=== PATIENT | female | born 1995 | race Caucasian/White ===

== ENCOUNTER 2023-11-03 16:50 | Emergency (ER) | payer OTHER, SELFPAY ==
[2023-11-03 17:01] VITALS: BP 122/82
[2023-11-03 17:21] LABS: % Basophils 0.2 % (0-2); % Eosinophils 0.8 % (0-6); % Immature Granulocytes 0.9 % (0-0.5); % Lymphocytes 15.6 % (20.5-51.1); % Monocytes 8.7 % (1.7-9.3); % Neutrophils 73.8 % (42.2-75.2); Absolute Eosinophils 0.1 10^3/uL (0-0.7); Absolute Immature Granulocytes 0.1 10^3/uL (0-0.05); Absolute Lymphocytes 2.2 10^3/uL (1.2-3.4); Absolute Monocytes 1.2 10^3/uL (0.1-0.6); Absolute Neutrophils 10.2 10^3/uL (1.4-6.5); Hemoglobin 11.9 g/dL (12.0-16.0); Mean Corpuscular Hgb 31.4 pg (27.0-31.0); Mean Corpuscular Volume 92.3 fL (81.0-99.0); Mean Platelet Volume 11.5 fL (7.4-10.4); Nucleated Red Blood Cells % 0 %; Platelet Count 157 10^3/uL (130-400); Red Blood Cell Count 3.79 10^6/uL (4.20-5.40); White Blood Cell Count 13.8 10^3/uL (4.8-10.8)
[2023-11-03 17:34] LABS: ALT (SGPT) 29 U/L (0-35); AST (SGOT) 30 U/L (14-36); Albumin 3.8 g/dl (3.5-5.0); Alkaline Phosphatase 104 U/L (38-126); Blood Urea Nitrogen 7 mg/dl (7-17); Carbon Dioxide 22 mmol/L (22-30); Chloride 101 mmol/L (98-107); Glucose 80 mg/dl (70-99); INR 0.99; PT 13.1 Sec (11.4-14.6); Potassium 3.9 mmol/L (3.5-5.1); Sodium 131 mmol/L (135-145); Total Bilirubin 0.5 mg/dl (0.2-1.3); Total Protein 6.5 g/dl (6.3-8.2); eGFR > 60.00
[2023-11-03 17:45] LABS: Troponin I < 0.012 ng/ml
--- NOTE | 2023-11-03 18:22 | ED.GENMED ---
History of Present Illness
General
Chief Complaint: Cardiac Symptoms
Source: patient
Exam Limitations: none
Time Seen by Provider: 11/03/23 17:58
Travel History
Have you had any contact with someone who has COVID-19?: No
Do you have any symptoms of coronavirus? Fever > 100 degrees, chills, cough, shortness of breath, sore throat, loss of taste or smell, muscle aches, or headache?: No
History of Present Illness
History of Present Illness:
27 year old female 35 weeks along presents for evaluation for chest pressure and SOB. The symptoms are intermittent and now currently resolved. Initially she was seen by her OB today but she mentioned the symptoms to. [facility]
doctor family doctor did EKG which looked abnormal and she was sent here. Currently she denies chest pain. She denies shortness of breath. She denies leg pain. She notes edema in her legs as a result of her but this is not new. No
other complaints at this time
Phy Exam
Physical Exam
Physical Exam:
General: Well-appearing female no acute respiratory
HEENT: Normocephalic atraumatic
Heart: Regular rate and rhythm no murmurs
Lungs: Clear to auscultation bilaterally no wheezing
Extremities: Mild pitting edema bilateral lower extremities no calf tenderness
Abdomen is gravid nontender skin is warm no rash
Course
Orders/Labs/Results
Orders:
Orders
11/03/23 16:53
Electrocardiogram (*1) Urgent
Reason for Study: Chest Pain
EKG- Treatment ONCE
11/03/23 17:02
US Periph Venous LOWER Ext RT Urgent
Comment:
Reason For Exam: swelling
11/03/23 17:07
Complete Blood Count/With Diff Urgent
Comprehensive Metabolic Panel Urgent
Prothrombin Time Urgent
Troponin I Urgent
Abnormal Lab Results
11/03/23
17:07
WBC 13.8 H 10^3/uL
(4.8-10.8)
RBC 3.79 L 10^6/uL
(4.20-5.40)
Hgb 11.9 L g/dL
(12.0-16.0)
Hct 35.0 L %
(37.0-47.0)
MCH 31.4 H pg
(27.0-31.0)
MPV 11.5 H fL
(7.4-10.4)
Abs Immat Gran (auto) 0.1 H 10^3/uL
(0-0.05)
Absolute Neuts (auto) 10.2 H 10^3/uL
(1.4-6.5)
Absolute Monos (auto) 1.2 H 10^3/uL
(0.1-0.6)
Immature Gran % 0.9 H %
(0-0.5)
Lymphocytes % 15.6 L %
(20.5-51.1)
Sodium 131 L mmol/L
(135-145)
Creatinine 0.4 L mg/dL
(0.6-1.0)
11/03/23 17:07
11/03/23 17:07
Vital Signs
Initial and Last Documented VS:
Initial Vital Signs
Temp Pulse Resp BP Pulse Ox
98.0 F 110 18 122/82 99
11/03/23 17:01 11/03/23 17:01 11/03/23 17:01 11/03/23 17:01 11/03/23 17:01
Last Documented Vital Signs
Temp Pulse Resp BP Pulse Ox
98.0 F 89 18 122/82 99
11/03/23 17:01 11/03/23 18:13 11/03/23 17:01 11/03/23 17:01 11/03/23 17:01
MDM/Problems Addressed
Differential Diagnosis Includes:
Patient sent here for evaluation of chest pressure and shortness of breath in the setting of late third trimester . Currently symptoms are resolved. Patient is at risk for thrombotic events. She is not hypoxic she is not tachycardic.
Ultrasound of both legs were performed today through triage which are negative for DVT. Labs reviewed without significant finding.
Given resolution of symptoms and normal vital signs do not suspect PE at this time. ACS unlikely with negative troponin and resolution of symptoms.
*Critical Care Note
Total Time (30-74mins, 75-104mins- exclusive of procedures): Not Applicable
Update Note
Update Note:
Patient remained asymptomatic here EKGs were within normal limits. Patient was not tachycardic on arrival. unlikely PE. Stable for discharge
ED Attending Note
-
Portions of this chart may have been created with voice recognition software.� Occasional wrong word or��sound alike� substitutions may have occurred due to the inherent limitations of voice recognition software.
Discharge Plan
Departure
Patient Disposition: Home (Routine Discharge)
Date of Disposition: 11/03/23
Time of Disposition: 19:29
Patient with high blood pressure during this ER visit?: No
Discharge Problem:
Chest pain
Instructions: Chest Pain (DC)
Referrals:
Clair Solis DO [Family Provider] -
Activity Restrictions/Additional Instructions:
Please return here for worsening symptoms otherwise follow-up with your treating physicians
Interventions
Interventions:
*Risk Screen - Suicide Last Done: 11/03/23 17:01
*General Assessment Last Done: 11/03/23 17:01
*Neglect/Abuse Screening Last Done: 11/03/23 17:01
ED- Fall Risk Assessment Last Done: 11/03/23 19:21
*ED COVID-19 Vaccine History Last Done: 11/03/23 17:01
ED- Pulmonary Assessment Last Done: 11/03/23 19:21
ED- Cardiac Assessment Last Done: 11/03/23 19:21
Discharge Date and Time
Print Language: ARABIC
== END 2023-11-03 19:32 | disposition home or self-care (01) ==
LOC: EMR 16:50
PROVIDERS: Emergency Medicine; EMERGENCY PHYSICIAN Emergency Medicine; FAMILY PHYSICIAN Family Medicine
DX: O26.893 Other specified pregnancy related conditions, third trimester (principal); R07.89 Other chest pain; R06.02 Shortness of breath; Z3A.35 35 weeks gestation of pregnancy; O12.03 Gestational edema, third trimester
CPT/HCPCS: 99284; 80053; 84484; 85025; 85610; 93005; 93971